=== PATIENT | male | born 1995 | race Caucasian/White ===

== ENCOUNTER 2020-08-08 13:41 | Emergency (ER) | payer BC, SELFPAY | END 2020-08-08 14:15 | disposition home or self-care (01) | LOC: MADERS 13:41 | DX: S30.851A Superficial foreign body of abdominal wall, initial encounter (principal); W45.8XXA Other foreign body or object entering through skin, initial encounter | CPT/HCPCS: 99283 ==

== ENCOUNTER 2021-03-03 11:06 | Emergency (ER) | payer OTHER | END 2021-03-03 12:46 | disposition home or self-care (01) | LOC: MADERS 11:06 | DX: T63.481A Toxic effect of venom of other arthropod, accidental (unintentional), initial encounter (principal); R20.2 Paresthesia of skin; F17.210 Nicotine dependence, cigarettes, uncomplicated | CPT/HCPCS: 99283 ==